=== PATIENT | female | born 1930 | race Caucasian/White ===

== ENCOUNTER 2017-06-23 19:14 | Inpatient (IN) | payer OTHER, MEDICARE ==
[~2017-06-23] VITALS: Ht 157.5 cm; Wt 40.9 kg
[2017-06-23 19:29] VITALS: BP 164/85; PULSE 96; RESP 20; TEMP 97.8; O2SAT 100
--- NOTE | 2017-06-23 19:41 | PD ---
HPI Chief Complaint: Altered Mental Status Time Seen by Provider: 19:32 Travel History International Travel<30 days: No Contact w/Intl Traveler<30days: No Traveled to known affect area: No History of Present Illness HPI 86-year-old female was found by family with lethargy and trouble speaking. Patient was found normal last night. Family member found the patient sitting on the floor in the bathroom today. Patient was awake however with lethargy and gibberish speech. EMS was called. Patient was febrile to the ED for evaluation. Patient denies any headache. Patient complaining of chest pain and shortness of breath. Patient unable to tell me the quality or quantity of the chest pain. Patient denies any coughing congestion. Patient complains abdominal pain. Patient unable to tell me the quality or the quantity of the abdominal pain Patient denies any nausea vomiting diarrhea. Patient denies dysuria or frequency. Patient's daughter states that patient has a signed DNR. Patient's daughter states the patient has history hypertension, hypothyroidism , glaucoma. Patient's daughter states the patient is not on any blood thinner. [facility] Social History Tobacco Use: No Allergies-Medications (Allergen,Severity, Reaction): Coded Allergies: Penicillin (Verified Allergy, Unknown, 06/23/17) Reported Meds & Prescriptions Reported Meds & Active Scripts Active Reported Amlodipine (Amlodipine Besylate) 5 Mg Tab 5 Mg PO DAILY Levothyroxine (Levothyroxine Sodium) 75 Mcg Tab 75 Mcg PO DAILY Review of Systems General / Constitutional: No: Fever Eyes: No: Visual changes HENT: No: Headaches Cardiovascular: Positive: Chest Pain or Discomfort Respiratory: Positive: Shortness of Breath Gastrointestinal: Positive: Abdominal Pain Genitourinary: No: Dysuria Musculoskeletal: No: Pain Skin: No Rash Neurologic: No: Weakness Psychiatric: No: Depression Endocrine: No: Polydipsia Hematologic/Lymphatic: No: Easy Bruising Physical Exam Narrative GENERAL: Thin female, with lethargy. SKIN: Focused skin assessment warm/dry. HEAD: Normocephalic. EYES: No scleral icterus. No injection or drainage. Pupils 2 mm and sluggish reactive NECK: Supple, trachea midline. No JVD or lymphadenopathy. No meningismus CARDIOVASCULAR: Regular rate and rhythm without murmurs, gallops, or rubs. RESPIRATORY: Breath sounds equal bilaterally. No accessory muscle use. Patient has mild tachypnea. Few rhonchi at the bases. No wheezes. GASTROINTESTINAL: Abdomen soft, non-tender, nondistended. MUSCULOSKELETAL: No cyanosis, or edema. BACK: Nontender without obvious deformity. No CVA tenderness. Neurologic exam: Patient awake with lethargy. Patient with mild intermittent incomprehensive words. Patient answered questions clearly at times. Patient moves all extremity well. No obvious focal neurological deficit. Data Data Last Documented VS Vital Signs Date Time Temp Pulse Resp B/P Pulse Ox O2 Delivery O2 Flow Rate FiO2 06/23/17 21:14 88 20 152/87 100 Nasal Cannula 2 06/23/17 19:29 97.8 Orders Electrocardiogram (06/23/17 19:32) Complete Blood Count With Diff (06/23/17 19:32) Comprehensive Metabolic Panel (06/23/17 19:32) Creatine Kinase (Cpk) (06/23/17 19:32) Troponin I (06/23/17 19:32) B-Type Natriuretic Peptide (06/23/17 19:32) Prothrombin Time / Inr (Pt) (06/23/17 19:32) Act Partial Throm Time (Ptt) (06/23/17 19:32) Blood Culture (06/23/17 19:32) Lipase (06/23/17 19:32) Urinalysis - C+S If Indicated (06/23/17 19:32) Thyroid Stimulating Hormone (06/23/17 19:32) Chest, Single Ap (06/23/17 19:32) Ct Brain W/O Iv Contrast(Rout) (06/23/17 19:32) Iv Access Insert/Monitor (06/23/17 19:32) Ecg Monitoring (06/23/17 19:32) Oximetry (06/23/17 19:32) Urinary Catheter Insert/Apply (06/23/17 19:32) Ct Abd/Pel W Iv Contrast(Rout) (06/23/17 19:32) Lactic Acid Sepsis Protocol (06/23/17 19:34) Sodium Chlor 0.9% 1000 Ml Inj (Ns 1000 M (06/23/17 20:15) Pantoprazole Inj (Protonix Inj) (06/23/17 20:15) Vancomycin Inj (Vancomycin Inj) (06/23/17 20:30) Levofloxacin 500 Mg Premix Inj (Levaquin (06/23/17 20:30) CKMB (06/23/17 19:40) CKMB% (06/23/17 19:40) Iohexol 350 Inj (Omnipaque 350 Inj) (06/23/17 21:08) Mannitol Inj (Mannitol Inj) (06/23/17 21:30) Mannitol Inj (Mannitol Inj) (06/23/17 21:38) Admit Order (Ed Use Only) (06/23/17 21:56) Labs Laboratory Tests Test 06/23/17 06/23/17 06/23/17 06/23/17 19:10 19:40 19:50 21:00 White Blood Count 14.3 TH/MM3 Red Blood Count 4.00 MIL/MM3 Hemoglobin 13.5 GM/DL Hematocrit 40.0 % Mean Corpuscular Volume 100.0 FL Mean Corpuscular Hemoglobin 33.7 PG Mean Corpuscular Hemoglobin 33.7 % Concent Red Cell Distribution Width 13.4 % Platelet Count 174 TH/MM3 Mean Platelet Volume 9.1 FL Neutrophils (%) (Auto) 91.0 % Lymphocytes (%) (Auto) 3.9 % Monocytes (%) (Auto) 4.9 % Eosinophils (%) (Auto) 0.0 % Basophils (%) (Auto) 0.2 % Neutrophils # (Auto) 13.0 TH/MM3 Lymphocytes # (Auto) 0.6 TH/MM3 Monocytes # (Auto) 0.7 TH/MM3 Eosinophils # (Auto) 0.0 TH/MM3 Basophils # (Auto) 0.0 TH/MM3 CBC Comment DIFF FINAL Differential Comment B-Type Natriuretic Peptide 235 PG/ML Sodium Level 140 MEQ/L Potassium Level 4.4 MEQ/L Chloride Level 105 MEQ/L Carbon Dioxide Level 20.8 MEQ/L Anion Gap 14 MEQ/L Blood Urea Nitrogen 16 MG/DL Creatinine 1.00 MG/DL Estimat Glomerular Filtration 52 ML/MIN Rate Random Glucose 128 MG/DL Lactic Acid Level 4.9 mmol/L Calcium Level 9.1 MG/DL Total Bilirubin 0.7 MG/DL Aspartate Amino Transf 40 U/L (AST/SGOT) Alanine Aminotransferase 26 U/L (ALT/SGPT) Alkaline Phosphatase 80 U/L Total Creatine Kinase 715 U/L Creatine Kinase MB 5.6 NG/ML Creatine Kinase MB % 0.8 % Troponin I 0.06 NG/ML Total Protein 7.4 GM/DL Albumin 3.8 GM/DL Lipase 155 U/L Thyroid Stimulating Hormone 0.421 uIU/ML 3rd Gen Urine Color YELLOW Urine Turbidity CLEAR Urine pH 6.5 Urine Specific [place] 1.015 Urine Protein 30 mg/dL Urine Glucose (UA) TRACE mg/dL Urine Ketones 40 mg/dL Urine Occult Blood SMALL Urine Nitrite NEG Urine Bilirubin NEG Urine Urobilinogen LESS THAN 2.0 MG/DL Urine Leukocyte Esterase NEG Urine RBC 3 /hpf Urine WBC LESS THAN 1 /hpf Urine Hyaline Casts 3 /lpf Urine Mucus FEW /lpf Microscopic Urinalysis Comment CULT NOT INDICATED Prothrombin Time 11.0 SEC Prothromb Time International 1.0 RATIO Ratio Activated Partial 23.6 SEC Thromboplast Time MDM Medical Decision Making Medical Screen Exam Complete: Yes Emergency Medical Condition: Yes Interpretation(s) Last Impressions Chest X-Ray 06/23/171931 Signed Impressions: Service Date/Time: Friday, June 23, 2017 19:32 - CONCLUSION: Hyperaerated lungs. No infiltrates seen. Galen Russ MD 21:09 PM. CBC WBC 14.3. 91 neutrophil. Bicarbonate 20.8. Lactic acid 4.9. AST 40. Total CK 715. Normal MB fraction. Troponin 0.06. BNP 235. UA negative. 21:53 PM. Last Impressions Head CT 06/23/171931 Signed Impressions: Service Date/Time: Friday, June 23, 2017 20:42 - CONCLUSION: 2.8 cm hematoma in the left thalamus with extension into the lateral ventricle and some bilateral layering intraventricular blood. There is also localized edema in the posterior left temporal region and mild midline shift towards the right. Galen Russ MD Chest X-Ray 06/23/171931 Signed Impressions: Service Date/Time: Friday, June 23, 2017 19:32 - CONCLUSION: Hyperaerated lungs. No infiltrates seen. Galen Russ MD Abdomen/Pelvis CT 06/23/171931 Signed Impressions: Service Date/Time: Friday, June 23, 2017 20:45 - CONCLUSION: No acute findings. No dilated loops of small or large bowel. Galen Russ MD Differential Diagnosis Differential diagnosis including TIA, CVA, electrolyte imbalance, pneumonia, UTI , sepsis. Narrative Course 86-year-old female with lethargy, intermittent gibberish speaking, complaining of chest pain shortness of breath abdominal pain. Normal saline solution 1 L IV bolus. Vancomycin 1 g IV. Levaquin 500 mg IV. I spoke with Dr. Robins. Advised mannitol 25 g IV every 6 hours. Diagnosis Primary Impression: Intracranial hemorrhage Additional Impressions: Sepsis Qualified Code: A41.9 - Sepsis, due to unspecified organism Elevated troponin Admitting Information Admitting Physician Requests: Admit Dany Nixon MD Jun 23, 2017 19:41
--- NOTE | 2017-06-23 20:08 | RADRPT ---
EXAM DATE/TIME: 06/23/2017 19:32 [facility] COMPARISON: No previous studies available for comparison. INDICATIONS : Short of breath MEDICAL HISTORY : None. SURGICAL HISTORY : None. ENCOUNTER: Initial ACUITY: 1 day PAIN SCORE: 0/10 LOCATION: chest FINDINGS: The lungs are hyperaerated. No focal infiltrates seen. No evidence of pneumothorax. The heart is u pper limits normal size. Moderate tortuosity descending thoracic aorta. Moderate curvature of the t horacolumbar spine convex towards the right. CONCLUSION: Hyperaerated lungs. No infiltrates seen. Galen Russ MD on June 23, 2017 at 20:06 Board Certified Radiologist. This report was verified electronically.
[2017-06-23] MEDS ORDERED: LEVO75TA3 PO (20:12)
[2017-06-23] MEDS ORDERED: AMLO5TAB2 PO (20:12)
[2017-06-23 20:14] VITALS: O2SAT 98
[2017-06-23 20:15] LABS: BASOPHIL % 0.2 % (0.0-2.0); HEMO FLAGS DIFF FINAL; LYMPH % 3.9 % (9.0-44.0); LYMPHOCYTE # 0.6 TH/MM3 (1.0-4.8); MEAN CORPUSCULAR HEMOGLOBIN 33.7 PG (27.0-34.0); MEAN CORPUSCULAR HGB CONC 33.7 % (32.0-36.0); MONO % 4.9 % (0.0-8.0); PLATELET COUNT 174 TH/MM3 (150-450); RED CELL DISTRIBUTION WIDTH 13.4 % (11.6-17.2); WHITE BLOOD COUNT 14.3 TH/MM3 (4.0-11.0)
[2017-06-23] MEDS ORDERED: SODIUM CHLOR 0.9% 1000 ML INJ 1,000 ML IV ONE (20:15)
[2017-06-23] MEDS ORDERED: PANTOPRAZOLE SODIUM 40 MG VIAL IV PUSH ONE (20:15)
[2017-06-23 20:17] LABS: BLOOD, URINE SMALL (NEG); COMMENT (UR) CULT NOT INDICATED; CULTURE IF INDICATED CULT NOT INDICATED; GLUCOSE,URINE TRACE mg/dL (NEG); HYALINE CAST, URINE 3 /lpf (RARE); KETONE, URINE 40 mg/dL (NEG); MUCUS URINE FEW /lpf (OCC); NITRITE,URINE NEG (NEG); PH, URINE 6.5 (5.0-8.5); URINE COLOR YELLOW (YELLW/STRAW)
[2017-06-23 20:18] LABS: ANION GAP 14 MEQ/L (5-15); AST (GOT) 40 U/L (15-37); BICARBONATE 20.8 MEQ/L (21.0-32.0); BLOOD UREA NITROGEN 16 MG/DL (7-18); CHLORIDE 105 MEQ/L (98-107); GLOMERULAR FILTRATION RATE 52 ML/MIN (>89); POTASSIUM 4.4 MEQ/L (3.5-5.1); SODIUM (NA) 140 MEQ/L (136-145)
[2017-06-23 20:19] LABS: ALT (GPT) 26 U/L (10-53)
[2017-06-23 20:29] LABS: ALKALINE PHOSPHATASE 80 U/L (45-117); CREATINE KINASE 715 U/L (26-192); TOTAL BILIRUBIN ADULT 0.7 MG/DL (0.2-1.0)
[2017-06-23] MEDS ORDERED: LEVOFLOXACIN 500 MG PREMIX INJ 100 ML IV ONE (20:30)
[2017-06-23] MEDS ORDERED: VANCOMYCIN INJ 1,000 MG in SODIUM CHLOR 0.9% 250 ML INJ 250 ML IV ONE (20:30)
[2017-06-23 20:41] LABS: CKMB 5.6 NG/ML (0.5-3.6)
[2017-06-23] MEDS ORDERED: IOHEXOL 350 MG/ML 10 ML VIAL (for RAD DIAG) IV ONE (21:08)
--- NOTE | 2017-06-23 21:11 | RADRPT ---
EXAM DATE/TIME: 06/23/2017 20:42 [facility] COMPARISON: No previous studies available for comparison. INDICATIONS : Altered mental status. Found unresponsive in chair. RADIATION DOSE: 56.35 CTDIvol (mGy) MEDICAL HISTORY : None SURGICAL HISTORY : None. ENCOUNTER: Initial ACUITY: 1 day PAIN SCALE: 0/10 LOCATION: cranial TECHNIQUE: Multiple contiguous axial images were obtained of the head. Using automated exposure control and adj ustment of the mA and/or kV according to patient size, radiation dose was kept as low as reasonably a chievable to obtain optimal diagnostic quality images. DICOM format image data is available electro nically for review and comparison. FINDINGS: CEREBRUM: The study is abnormal demonstrating a 2.8 cm hyperdense hematoma in the medial left thalamus causing indentation on the 3rd ventricle and deviation of the septum between the lateral ventricles towards t he right a 4 mm. Extension of the hemorrhage into the body of the left lateral ventricle and there i s some mild layering of blood products in the occipital horns. There is diffuse decreased attenuatio n in the supratentorial white matter. The lateral ventricles are similar in size. The sulci and bas al cisterns are prominent characteristic of central and cortical atrophy. There is loss of delineati on of the carpenter and white matter in the left low convexity posterior temporal region suggesting focal edema. No subdural or subarachnoid blood products seen. POSTERIOR FOSSA: The cerebellum and brainstem are intact. The 4th ventricle is midline. No hemorrhage in the 4th paty tricle. The cerebellopontine angle is unremarkable. EXTRACRANIAL: The visualized portion of the orbits is intact. SKULL: The calvaria is intact. No evidence of skull fracture. CONCLUSION: 2.8 cm hematoma in the left thalamus with extension into the lateral ventricle and some bilateral lay ering intraventricular blood. There is also localized edema in the posterior left temporal region an d mild midline shift towards the right. Galen Russ MD on June 23, 2017 at 21:04 Board Certified Radiologist. This report was verified electronically.
[2017-06-23 21:14] VITALS: BP 152/87; PULSE 88; RESP 20; O2SAT 100
[2017-06-23] MEDS ORDERED: MANNITOL 12.5 GM/50 ML VIAL IV ONE (21:30)
--- NOTE | 2017-06-23 21:36 | RADRPT ---
EXAM DATE/TIME: 06/23/2017 20:45 [facility] COMPARISON: No previous studies available for comparison. INDICATIONS : Diffuse abdominal pain. IV CONTRAST: 80 cc Omnipaque 350 (iohexol) IV ORAL CONTRAST: No oral contrast ingested. RADIATION DOSE: 9.96 CTDIvol (mGy) ; Patient motion MEDICAL HISTORY : None SURGICAL HISTORY : None. ENCOUNTER: Initial ACUITY: 1 day PAIN SCALE: 6/10 LOCATION: Bilateral abdomen TECHNIQUE: Volumetric scanning of the abdomen and pelvis was performed. Using automated exposure control and ad justment of the mA and/or kV according to patient size, radiation dose was kept as low as reasonably achievable to obtain optimal diagnostic quality images. DICOM format image data is available electro nically for review and comparison. FINDINGS: LOWER LUNGS: The visualized lower lungs are clear. LIVER: Homogeneous density without lesion. There is no dilation of the biliary tree. No calcified gallston es. SPLEEN: Normal size without lesion. PANCREAS: Within normal limits. KIDNEYS: Normal in size and shape. There is no mass, stone or hydronephrosis. ADRENAL GLANDS: Within normal limits. VASCULAR: There is no aortic aneurysm. Arteriosclerotic calcification. Tortuous course to the abdominal aorta follows the scoliosis. BOWEL/MESENTERY: No dilated loops of small or large bowel. Scattered diverticula in the sigmoid colon. ABDOMINAL WALL: Within normal limits. RETROPERITONEUM: There is no lymphadenopathy. BLADDER: Nix catheter in the lumen. Smooth margins. REPRODUCTIVE: Hysterectomy. INGUINAL: There is no lymphadenopathy or hernia. MUSCULOSKELETAL: Severe right lumbar scoliosis with associated degenerative changes. 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 CONCLUSION: No acute findings. No dilated loops of small or large bowel. Galen Russ MD on June 23, 2017 at 21:31 Board Certified Radiologist. This report was verified electronically.
[2017-06-23] MEDS ORDERED: MANNITOL INJ 50 ML ONE (21:38)
[2017-06-23 21:39] LABS: APTT (PATIENT) 23.6 SEC (24.3-30.1)
[2017-06-23 21:55] LABS: LACTIC ACID GHOST NOT REPORTABLE
[2017-06-23] MEDS ORDERED: LACTULOSE SYRUP 20 GM/30 ML CUP PO PRN (22:15)
[2017-06-23] MEDS ORDERED: MAGNESIUM HYDROXIDE SUSP 30 ML CUP PO PRN (22:15)
[2017-06-23] MEDS ORDERED: ZOLPIDEM TARTRATE 5 MG TAB PO PRN (22:15)
[2017-06-23] MEDS ORDERED: BISACODYL 10 MG SUPP RECTAL PRN (22:15)
[2017-06-23] MEDS ORDERED: SODIUM CHLORIDE 0.9% FLUSH 10 ML FLUSH PRN (22:15)
[2017-06-23] MEDS ORDERED: SENNOSIDES 8.6 MG TAB PO PRN (22:15)
[2017-06-23] MEDS ORDERED: ACETAMINOPHEN 325 MG TAB PO PRN (22:15)
[2017-06-23] MEDS ORDERED: MISCELLANEOUS NURSING INFORMATION XX SCH (22:15)
[2017-06-23] MEDS ORDERED: CHLORHEXIDINE GLUCONATE 2 % 1 PACK (2 CLOTHS) TOP PRN (22:15)
[2017-06-23 22:21] VITALS: BP 150/68; PULSE 85; RESP 18; O2SAT 100
[2017-06-23] MEDS: SODIUM CHLOR 0.9% 1000 ML INJ 1,000 ML IV SCH (23:18)
[2017-06-23 23:25] VITALS: BP 156/88; PULSE 88; RESP 18; O2SAT 100
--- NOTE | 2017-06-23 23:50 | HHI.HP ---
HPI Service Critical Care Medicine Primary Care Physician Christy Mayes MD Admission Diagnosis intracranial hemorrhage. Sepsis. Elevated troponin. Diagnosis: Travel History International Travel<30 Days: No Contact w/Intl Traveler <30 Da: No Traveled to Known Affected Are: No History of Present Illness 86-year-old female with hypertension and hypothyroidism was found by family with lethargy and trouble speaking. Patient was last seen in normal the night before. Family member found the patient sitting on the floor in the bathroom today. She was awake however with lethargy and gibberish speech. EMS was called. Patient denies any headache. Patient denies any coughing congestion. She also complains of some abdominal pain. Patient unable to tell me the quality or the quantity of the abdominal pain Patient denies any nausea vomiting diarrhea. Patient denies dysuria or frequency. Review of Systems Constitutional: DENIES: Diaphoretic episodes, Fatigue, Fever, Weight gain, Weight loss, Chills, Dizziness, Change in appetite, Night Sweats Endocrine: DENIES: Abnorml menstrual pattern, Heat/cold intolerance, Polydipsia , Polyuria, Polyphagia Eyes: DENIES: Blurred vision, Diplopia, Eye inflammation, Eye pain, Vision loss , Photosensitivity, Double Vision Ears, nose, mouth, throat: DENIES: Tinnitus, Hearing loss, Vertigo, Nasal discharge, Oral lesions, Throat pain, Hoarseness, Ear Pain, Running Nose, Epistaxis, Sinus Pain, Toothache, Odynophagia Respiratory: COMPLAINS OF: Shortness of breath, DENIES: Apneas, Cough, Snoring , Wheezing, Hemoptysis, Sputum production Cardiovascular: DENIES: Chest pain, Palpitations, Syncope, Dyspnea on Exertion , PND, Lower Extremity Edema, Orthopnea, Claudication Gastrointestinal: COMPLAINS OF: Abdominal pain, DENIES: Black stools, Bloody stools, Constipation, Diarrhea, Nausea, Vomiting, Difficulty Swallowing, Anorexia Genitourinary: DENIES: Abnormal vaginal bleeding, Dysmenorrhea, Dyspareunia, Sexual dysfunction, Urinary frequency, Urinary incontinence, Urgency, Hematuria , Dysuria, Nocturia, Vaginal discharge Musculoskeletal: DENIES: Joint pain, Muscle aches, Stiffness, Joint Swelling, Back pain, Neck pain Integumentary: DENIES: Abnormal pigmentation, Pruritus, Rash, Nail changes, Breast masses, Breast skin changes, Nipple discharge Hematologic/lymphatic: DENIES: Bruising, Lymphadenopathy Immunologic/allergic: DENIES: Eczema, Urticaria Neurologic: COMPLAINS OF: Abnormal gait, Localized weakness, DENIES: Headache , Paresthesias, Seizures, Speech Problems, Tremor, Poor Balance Psychiatric: COMPLAINS OF: Delusions Past Family Social History Allergies: Coded Allergies: Penicillin (Verified Allergy, Unknown, 06/23/17) Past Medical History Hypertension Hypothyroidism Glaucoma Past Surgical History None Reported Medications Reported Meds & Active Scripts Active Reported Amlodipine (Amlodipine Besylate) 5 Mg Tab 5 Mg PO DAILY Levothyroxine (Levothyroxine Sodium) 75 Mcg Tab 75 Mcg PO DAILY Active Ordered Medications Current Medications Medications (Trade) Dose Ordered Sig/Lyric Route PRN Reason Start Time Stop Time Status Last Admin Dose Admin Mannitol (Mannitol Inj) 25 gm Q6H IV 06/24/17 04:00 Amlodipine Besylate (Norvasc) 5 mg DAILY PO 06/24/17 09:00 Levothyroxine Sodium 75 mcg 75 mcg DAILY@06 PO 06/24/17 06:00 Sodium Chloride (NS 1000 ml Inj) 1,000 ml @ 84 mls/hr [id number] IV 06/23/17 23:00 06/23/17 23:18 Sodium Chloride (NS Flush) 2 ml UNSCH PRN .XX FLUSH AFTER USING IV ACCESS 06/23/17 22:15 Sodium Chloride (NS Flush) 2 ml BID .XX 06/24/17 09:00 Acetaminophen (Tylenol) 650 mg Q6H PRN PO PAIN 1-10 AND/OR FEVER >101F 06/23/17 22:15 Morphine Sulfate (Morphine Inj) 2 mg Q2H PRN IV PAIN SCALE 6 TO 10 06/23/17 22:15 Famotidine (Pepcid Inj) 20 mg Q12HR IV PUSH 06/24/17 09:00 Ondansetron HCl (Zofran Inj) 4 mg Q6H PRN IV NAUSEA OR VOMITING 06/23/17 22:15 Zolpidem Tartrate (Ambien) 5 mg HS PRN PO INSOMNIA 06/23/17 22:15 Miscellaneous Information 1 Q361D XX 06/23/17 22:15 Chlorhexidine Gluconate (Chlorhexidine 2% Cloth) 3 pack Taper DAILY@04 TOP 06/24/17 04:00 06/20/18 03:59 Chlorhexidine Gluconate (Chlorhexidine 2% Cloth) 3 pack UNSCH PRN [facility] 06/23/17 22:15 Senna/Docusate Sodium (Parvin-Colace) 1 tab BID PO 06/24/17 09:00 Magnesium Hydroxide (Milk Of Flaca Peterson) 30 ml Q12H PRN PO MILD - MODERATE CONSTIPATION 06/23/17 22:15 Sennosides (Senokot) 17.2 mg Q12H PRN PO MODERATE - SEVERE CONSTIPATION 06/23/17 22:15 Bisacodyl (Dulcolax Supp) 10 mg DAILY PRN RECTAL SEVERE CONSITIPATION 06/23/17 22:15 Lactulose 30 ml 30 ml DAILY PRN PO SEVERE CONSITIPATION 06/23/17 22:15 Levofloxacin/ Dextrose (Levaquin 750 Mg Premix Inj) 150 ml @ 100 mls/hr Q24H IV 06/24/17 21:00 Hydralazine HCl (Apresoline Inj) 10 mg Q4H PRN IV PUSH SBP>140, DBP>90 06/24/17 00:30 Labetalol HCl (Trandate Inj) 10 mg Q4H PRN IV PUSH SBP>140, DBP>90 06/24/17 00:30 06/24/17 00:38 Family History No family history of cancer or early coronary artery disease Social History Denies alcohol tobacco or illicit drug abuse Physical Exam Vital Signs Vital Signs Date Time Temp Pulse Resp B/P Pulse Ox O2 Delivery O2 Flow Rate FiO2 06/23/17 23:25 88 18 156/88 100 Nasal Cannula 2 06/23/17 22:21 85 18 150/68 100 Nasal Cannula 2 06/23/17 21:14 88 20 152/87 100 Nasal Cannula 2 06/23/17 20:14 98 Nasal Cannula 2 06/23/17 19:36 Room Air 06/23/17 19:29 97.8 96 20 164/85 100 Physical Exam GENERAL: Elderly female comfortably sitting on the he stretcher. SKIN: Warm and dry. HEAD: Normocephalic. EYES: No scleral icterus. No injection or drainage. NECK: Supple, trachea midline. No JVD or lymphadenopathy. CARDIOVASCULAR: Regular rate and rhythm without murmurs, gallops, or rubs. RESPIRATORY: Breath sounds equal bilaterally. No accessory muscle use. GASTROINTESTINAL: Abdomen soft, non-tender, nondistended. MUSCULOSKELETAL: No cyanosis, or edema. BACK: Nontender without obvious deformity. No CVA tenderness. EXTREMITIES: Right upper extremity weakness 2 out of 5, all other 3 extremities intact Laboratory Laboratory Tests Test 06/23/17 06/23/17 06/23/17 06/23/17 19:10 19:40 19:50 21:00 White Blood Count 14.3 Red Blood Count 4.00 Hemoglobin 13.5 Hematocrit 40.0 Mean Corpuscular Volume 100.0 Mean Corpuscular Hemoglobin 33.7 Mean Corpuscular Hemoglobin 33.7 Concent Red Cell Distribution Width 13.4 Platelet Count 174 Mean Platelet Volume 9.1 Neutrophils (%) (Auto) 91.0 Lymphocytes (%) (Auto) 3.9 Monocytes (%) (Auto) 4.9 Eosinophils (%) (Auto) 0.0 Basophils (%) (Auto) 0.2 Neutrophils # (Auto) 13.0 Lymphocytes # (Auto) 0.6 Monocytes # (Auto) 0.7 Eosinophils # (Auto) 0.0 Basophils # (Auto) 0.0 CBC Comment DIFF FINAL Differential Comment B-Type Natriuretic Peptide 235 Sodium Level 140 Potassium Level 4.4 Chloride Level 105 Carbon Dioxide Level 20.8 Anion Gap 14 Blood Urea Nitrogen 16 Creatinine 1.00 Estimat Glomerular Filtration 52 Rate Random Glucose 128 Lactic Acid Level 4.9 Calcium Level 9.1 Total Bilirubin 0.7 Aspartate Amino Transf 40 (AST/SGOT) Alanine Aminotransferase 26 (ALT/SGPT) Alkaline Phosphatase 80 Total Creatine Kinase 715 Creatine Kinase MB 5.6 Creatine Kinase MB % 0.8 Troponin I 0.06 Total Protein 7.4 Albumin 3.8 Lipase 155 Thyroid Stimulating Hormone 0.421 3rd Gen Urine Color YELLOW Urine Turbidity CLEAR Urine pH 6.5 Urine Specific [place] 1.015 Urine Protein 30 Urine Glucose (UA) TRACE Urine Ketones 40 Urine Occult Blood SMALL Urine Nitrite NEG Urine Bilirubin NEG Urine Urobilinogen LESS THAN 2.0 Urine Leukocyte Esterase NEG Urine RBC 3 Urine WBC LESS THAN 1 Urine Hyaline Casts 3 Urine Mucus FEW Microscopic Urinalysis Comment CULT NOT INDICATED Prothrombin Time 11.0 Prothromb Time International 1.0 Ratio Activated Partial 23.6 Thromboplast Time Test 06/23/17 22:23 Lactic Acid Level 2.7 Date/Time Procedure Status Source Growth 06/23/17 19:40 Aerobic Blood Culture Received Blood Peripheral Pending 06/23/17 19:40 Anaerobic Blood Culture Received Blood Peripheral Pending Result Diagram: 06/23/17 1910 06/23/171939 Imaging Last [address] 06/23/171931 Signed Impressions: Service Date/Time: Friday, June 23, 2017 20:42 - CONCLUSION: 2.8 cm hematoma in the left thalamus with extension into the lateral ventricle and some bilateral layering intraventricular blood. There is also localized edema in the posterior left temporal region and mild midline shift towards the right. Galen Russ MD Chest X-Ray 06/23/171931 Signed Impressions: Service Date/Time: Friday, June 23, 2017 19:32 - CONCLUSION: Hyperaerated lungs. No infiltrates seen. Galen Russ MD Abdomen/Pelvis CT 06/23/171931 Signed Impressions: Service Date/Time: Friday, June 23, 2017 20:45 - CONCLUSION: No acute findings. No dilated loops of small or large bowel. Galen Russ MD Assessment and Plan Assessment and Plan ICH - No neurosurgical intervention indicated - Blood pressure control with the goal of SBP less than 140 - Mannitol every [address] Robins - Neurosurgical consult appreciated - No history of blood thinners - Neuro exams per unit protocol - Repeat CT head a.m. Hypertension - Labetalol and hydralazine when necessary to keep SBP less than 140 Urinary tract infection - Levaquin - Culture - Antibiotic further per sensitivity Hypothyroidism - Levothyroxine per home dose DVT GI prophylaxis - Teds SCDs - No pharmacological DVT prophylaxis due to ICH - IV Pepcid Critical Care: The total critical care time was 35 minutes. Time to perform other separately billable procedures was not included in the critical care time. Mitesh Castaneda MD Jun 23, 2017 23:50
[2017-06-24] VITALS (17 sets, daily range): BP systolic 120–173; BP diastolic 58–115; PULSE 71–102; RESP 12–32; TEMP 98–100.4; O2SAT 95–99
[2017-06-24] MEDS ORDERED: LABETALOL HCL 100 MG/20 ML VIAL IV PUSH PRN (00:30)
[2017-06-24] MEDS: ONDANSETRON HCL 4 MG/2 ML VIAL IV PRN ×3 (00:47→10:54)
[2017-06-24] MEDS: MORPHINE SULFATE 4 MG/ML INJ IV PRN ×5 (00:49→23:32)
[2017-06-24] MEDS: CHLORHEXIDINE GLUCONATE 2 % 1 PACK (2 CLOTHS) TOP SCH (04:00)
[2017-06-24] MEDS: MANNITOL 12.5 GM/50 ML VIAL IV SCH ×3 (04:17→16:00)
[2017-06-24] MEDS: hydrALAZINE HCL 20 MG/ML VIAL IV PUSH PRN ×3 (04:58→16:08)
[2017-06-24] MEDS ORDERED: LEVOTHYROXINE SODIUM 75 MCG TAB PO SCH (06:00)
[2017-06-24 07:07] LABS: AUTOMATED NEUTROPHIL # 8.2 TH/MM3 (1.8-7.7); BASOPHIL % 0.2 % (0.0-2.0); HEMATOCRIT 36.1 % (35.0-46.0); HEMO FLAGS DIFF FINAL; LYMPH % 10.1 % (9.0-44.0); MEAN CELL VOLUME 100.2 FL (80.0-100.0); MEAN CORPUSCULAR HEMOGLOBIN 33.9 PG (27.0-34.0); MEAN CORPUSCULAR HGB CONC 33.9 % (32.0-36.0); MONO % 8.8 % (0.0-8.0); NEUT % 80.9 % (16.0-70.0); PLATELET COUNT 160 TH/MM3 (150-450); RED CELL DISTRIBUTION WIDTH 13.6 % (11.6-17.2); WHITE BLOOD COUNT 10.1 TH/MM3 (4.0-11.0)
[2017-06-24 07:17] LABS: ALT (GPT) 23 U/L (10-53); ANION GAP 8 MEQ/L (5-15); AST (GOT) 44 U/L (15-37); BICARBONATE 27.7 MEQ/L (21.0-32.0); BLOOD UREA NITROGEN 9 MG/DL (7-18); CHLORIDE 106 MEQ/L (98-107); GLOMERULAR FILTRATION RATE 66 ML/MIN (>89); MAGNESIUM 1.9 MG/DL (1.5-2.5); POTASSIUM 3.2 MEQ/L (3.5-5.1); SODIUM (NA) 142 MEQ/L (136-145)
[2017-06-24 07:24] LABS: ALKALINE PHOSPHATASE 70 U/L (45-117); TOTAL BILIRUBIN ADULT 0.7 MG/DL (0.2-1.0)
[2017-06-24] MEDS ORDERED: ALPH0.1S EACH EYE (07:25)
[2017-06-24] MEDS ORDERED: LATA0.002 EACH EYE (07:27)
[2017-06-24] MEDS: SODIUM CHLORIDE 0.9% FLUSH 10 ML FLUSH SCH ×2 (08:22→20:55)
[2017-06-24] MEDS ORDERED: FAMOTIDINE 20 MG/2 ML VIAL IV PUSH SCH (09:00)
[2017-06-24] MEDS ORDERED: amLODIPine BESYLATE 5 MG TAB PO SCH (09:00)
--- NOTE | 2017-06-24 09:07 | HHI.CCPN ---
Subjective Remarks/Hospital Course 86-year-old female with hypertension and hypothyroidism was found by family with lethargy and trouble speaking. Patient was last seen in normal the night before. Family member found the patient sitting on the floor in the bathroom today. She was awake however with lethargy and gibberish speech. EMS was called. Patient denies any headache. Patient denies any coughing congestion. She also complains of some abdominal pain. Patient unable to tell me the quality or the quantity of the abdominal pain Patient denies any nausea vomiting diarrhea. Patient denies dysuria or frequency. 06/24: Protects airway. No change in neuro status. Objective Vital Signs Date Time Temp Pulse Resp B/P Pulse Ox O2 Delivery O2 Flow Rate FiO2 06/24/17 08:00 99.2 82 14 148/74 97 06/24/17 05:58 Room Air 06/24/17 01:24 2 Result Diagram: 06/24/17 0624 06/24/17 0624 Imaging Last [address] 06/23/171931 Signed Impressions: Service Date/Time: Friday, June 23, 2017 20:42 - CONCLUSION: 2.8 cm hematoma in the left thalamus with extension into the lateral ventricle and some bilateral layering intraventricular blood. There is also localized edema in the posterior left temporal region and mild midline shift towards the right. Glaen Russ MD Chest X-Ray 06/23/171931 Signed Impressions: Service Date/Time: Friday, June 23, 2017 19:32 - CONCLUSION: Hyperaerated lungs. No infiltrates seen. Galen Russ MD Abdomen/Pelvis CT 06/23/171931 Signed Impressions: Service Date/Time: Friday, June 23, 2017 20:45 - CONCLUSION: No acute findings. No dilated loops of small or large bowel. Galen Russ MD Objective Remarks GENERAL: Elderly female in NAD. SKIN: Warm and dry. HEAD: Normocephalic. EYES: No scleral icterus. No injection or drainage. NECK: Supple, trachea midline.Airway widely patent. CARDIOVASCULAR: Regular rate and rhythm without murmurs, gallops, or rubs. No JVD. RESPIRATORY: Breath sounds equal bilaterally. No accessory muscle use. Clear. GASTROINTESTINAL: Abdomen soft, non-tender, nondistended. BS active. MUSCULOSKELETAL: No cyanosis, or edema. Well perfused. EXTREMITIES: Well perfused. NEURO: Right upper extremity weakness 2 out of 5, all other extremities intact. A/P Assessment and Plan ICH - No neurosurgical intervention indicated - Blood pressure control with the goal of SBP less than 140 - Mannitol every [address] Robins - Neurosurgical consult appreciated - No history of blood thinners - Neuro exams per unit protocol - Repeat CT head. Hypertension - Labetalol and hydralazine when necessary to keep SBP less than 140 Urinary tract infection - Levaquin - Culture - Antibiotic further per sensitivity Hypothyroidism - Levothyroxine per home dose DVT GI prophylaxis - Teds SCDs - No pharmacological DVT prophylaxis due to ICH - IV Pepcid Overall impression: Stable respiratory and hemodynamic status. Deteriorating neuro status during the day. Daughter requests DNR/comfort measures only status - we agree and will comply. Diony Montoya MD Jun 24, 2017 09:07
[2017-06-24] MEDS ORDERED: POTASSIUM PHOSPHATE MONOBASIC 500 MG TAB PO/TUBE PRN (09:45)
[2017-06-24] MEDS ORDERED: MAGNESIUM OXIDE 400 MG TAB PO PRN (09:45)
[2017-06-24] MEDS ORDERED: POTASSIUM CHLORIDE 25 MEQ EFFERVESCENT TAB PO PRN (09:45)
[2017-06-24] MEDS ORDERED: POTASSIUM CHLOR 40 MEQ PREMIX 100 ML IV PRN ×2 (09:45)
[2017-06-24] MEDS ORDERED: MAGNESIUM SULFATE INJ 4 GM in SODIUM CHLORIDE 0.9% INJ 92 ML IV PRN (09:45)
[2017-06-24] MEDS ORDERED: MAGNESIUM SULFATE INJ 2 GM in SODIUM CHLORIDE 0.9% INJ 96 ML IV PRN (09:45)
[2017-06-24] MEDS ORDERED: POTASSIUM CHLOR 20 MEQ PREMIX 100 ML IV PRN (09:45)
[2017-06-24] MEDS ORDERED: POTASSIUM PHOSPHATE INJ 30 MMOL in SODIUM CHLOR 0.9% 250 ML INJ 250 ML IV PRN (09:45)
[2017-06-24] MEDS ORDERED: POTASSIUM PHOSPHATE MONOBASIC 500 MG TAB PO PRN (09:45)
[2017-06-24] MEDS ORDERED: SODIUM PHOSPHATE INJ 30 MMOL in SODIUM CHLOR 0.9% 250 ML INJ 240 ML IV PRN (09:45)
--- NOTE | 2017-06-24 09:47 | PD.CONS ---
HPI Consult Requested By Primary Care Physician Christy Mayes MD Past Family Social History Allergies: Coded Allergies: Penicillin (Verified Allergy, Unknown, 06/23/17) Family History Family History: reviewed and does not contribute to this illness. No history of brain tumors stroke or aneurysms Physical Exam Vital Signs Vital Signs Date Time Temp Pulse Resp B/P Pulse Ox O2 Delivery O2 Flow Rate FiO2 06/24/17 08:00 99.2 82 14 148/74 97 06/24/17 08:00 86 06/24/17 07:00 80 19 144/68 94 06/24/17 05:58 86 18 130/59 96 Room Air 06/24/17 04:34 98.0 83 18 143/69 95 Room Air 06/24/17 03:00 78 18 140/68 96 06/24/17 01:50 132/63 06/24/17 01:30 148/70 06/24/17 01:24 74 18 154/72 98 Nasal Cannula 2 06/24/17 00:43 71 18 148/72 98 Nasal Cannula 2 06/24/17 00:22 99 18 159/115 99 Nasal Cannula 2 06/23/17 23:25 88 18 156/88 100 Nasal Cannula 2 06/23/17 22:21 85 18 150/68 100 Nasal Cannula 2 06/23/17 21:14 88 20 152/87 100 Nasal Cannula 2 06/23/17 20:14 98 Nasal Cannula 2 06/23/17 19:36 Room Air 06/23/17 19:29 97.8 96 20 164/85 100 Laboratory Laboratory Tests Test 06/23/17 06/23/17 06/23/17 06/23/17 19:10 19:40 19:50 21:00 White Blood Count 14.3 Red Blood Count 4.00 Hemoglobin 13.5 Hematocrit 40.0 Mean Corpuscular Volume 100.0 Mean Corpuscular Hemoglobin 33.7 Mean Corpuscular Hemoglobin 33.7 Concent Red Cell Distribution Width 13.4 Platelet Count 174 Mean Platelet Volume 9.1 Neutrophils (%) (Auto) 91.0 Lymphocytes (%) (Auto) 3.9 Monocytes (%) (Auto) 4.9 Eosinophils (%) (Auto) 0.0 Basophils (%) (Auto) 0.2 Neutrophils # (Auto) 13.0 Lymphocytes # (Auto) 0.6 Monocytes # (Auto) 0.7 Eosinophils # (Auto) 0.0 Basophils # (Auto) 0.0 CBC Comment DIFF FINAL Differential Comment B-Type Natriuretic Peptide 235 Sodium Level 140 Potassium Level 4.4 Chloride Level 105 Carbon Dioxide Level 20.8 Anion Gap 14 Blood Urea Nitrogen 16 Creatinine 1.00 Estimat Glomerular Filtration 52 Rate Random Glucose 128 Lactic Acid Level 4.9 Calcium Level 9.1 Total Bilirubin 0.7 Aspartate Amino Transf 40 (AST/SGOT) Alanine Aminotransferase 26 (ALT/SGPT) Alkaline Phosphatase 80 Total Creatine Kinase 715 Creatine Kinase MB 5.6 Creatine Kinase MB % 0.8 Troponin I 0.06 Total Protein 7.4 Albumin 3.8 Lipase 155 Thyroid Stimulating Hormone 0.421 3rd Gen Urine Color YELLOW Urine Turbidity CLEAR Urine pH 6.5 Urine Specific [place] 1.015 Urine Protein 30 Urine Glucose (UA) TRACE Urine Ketones 40 Urine Occult Blood SMALL Urine Nitrite NEG Urine Bilirubin NEG Urine Urobilinogen LESS THAN 2.0 Urine Leukocyte Esterase NEG Urine RBC 3 Urine WBC LESS THAN 1 Urine Hyaline Casts 3 Urine Mucus FEW Microscopic Urinalysis Comment CULT NOT INDICATED Prothrombin Time 11.0 Prothromb Time International 1.0 Ratio Activated Partial 23.6 Thromboplast Time Test 06/23/17 06/24/17 22:23 06:24 Lactic Acid Level 2.7 White Blood Count 10.1 Red Blood Count 3.60 Hemoglobin 12.2 Hematocrit 36.1 Mean Corpuscular Volume 100.2 Mean Corpuscular Hemoglobin 33.9 Mean Corpuscular Hemoglobin 33.9 Concent Red Cell Distribution Width 13.6 Platelet Count 160 Mean Platelet Volume 9.0 Neutrophils (%) (Auto) 80.9 Lymphocytes (%) (Auto) 10.1 Monocytes (%) (Auto) 8.8 Eosinophils (%) (Auto) 0.0 Basophils (%) (Auto) 0.2 Neutrophils # (Auto) 8.2 Lymphocytes # (Auto) 1.0 Monocytes # (Auto) 0.9 Eosinophils # (Auto) 0.0 Basophils # (Auto) 0.0 CBC Comment DIFF FINAL Differential Comment Sodium Level 142 Potassium Level 3.2 Chloride Level 106 Carbon Dioxide Level 27.7 Anion Gap 8 Blood Urea Nitrogen 9 Creatinine 0.82 Estimat Glomerular Filtration 66 Rate Random Glucose 107 Calcium Level 8.4 Phosphorus Level 3.0 Magnesium Level 1.9 Total Bilirubin 0.7 Aspartate Amino Transf 44 (AST/SGOT) Alanine Aminotransferase 23 (ALT/SGPT) Alkaline Phosphatase 70 Total Protein 6.7 Albumin 3.5 Date/Time Procedure Status Source Growth 06/23/17 19:50 Urine Culture Received Urine Catheterized Urine Pending 06/23/17 19:40 Aerobic Blood Culture Received Blood Peripheral Pending 06/23/17 19:40 Anaerobic Blood Culture Received Blood Peripheral Pending Result Diagram: 06/24/1762306/24/17623 Attending Statement Neuro. neuro checks in a serial fashion. Nonoperative management. FOllow up radiological studies in 24 hrs Hypertension Labetalol and hydralazine when necessary to keep SBP less than 140 Urinary tract infection. Levaquin. Follow up Cultures Antibiotic further per sensitivity Hypothyroidism. Continue Levothyroxine per home dose Pulmonary. aggressive pulmonary toilette, nasotracheal suction, and breathing treatments with nebulizers. PT and OT evaluation Nutrition. Oral diet Renal. monitor closely urine output, BUN and creatinine Endocrine. Monitor serial Acu checks and SSI as needed ID monitor for signs of infection Protonix for stress ulcer prophylaxis Bart hose and SCD's for DVT prophylaxis Vinny Robins MD Jun 24, 2017 09:47 Vinny Robins MD Jun 24, 2017 09:47
[2017-06-24] MEDS: POTASSIUM CHLOR 20 MEQ PREMIX 100 ML IV PRN ×4 (09:53→16:21)
[2017-06-24] MEDS: DOCUSATE SODIUM 50 MG/SENNA 8.6 MG TAB PO SCH ×2 (09:53→20:55)
[2017-06-24] MEDS: SODIUM CHLOR 0.9% 1000 ML INJ 1,000 ML IV SCH ×2 (10:36→22:54)
--- NOTE | 2017-06-24 12:01 | RADRPT ---
EXAM DATE/TIME: 06/24/2017 11:28 [facility] COMPARISON: CT BRAIN W/O CONTRAST, June 23, 2017, 20:42. INDICATIONS : Increased altered mental status. RADIATION DOSE: 56.39 CTDIvol (mGy) MEDICAL HISTORY : Hypertension. SURGICAL HISTORY : Hysterectomy. ENCOUNTER: Subsequent ACUITY: 2 days PAIN SCALE: Non-responsive LOCATION: cranial TECHNIQUE: Multiple contiguous axial images were obtained of the head. Using automated exposure control and adj ustment of the mA and/or kV according to patient size, radiation dose was kept as low as reasonably a chievable to obtain optimal diagnostic quality images. DICOM format image data is available electro nically for review and comparison. FINDINGS: The prior examination demonstrated a left basal ganglia/thalamus acute hematoma measuring approximate ly 2.7 x 2.6 cm. The blood products extended into the ventricular system with layering in the occipit al horns bilaterally. Today's examination demonstrates a stable appearance to the acute blood products. Ventricles are stab le in size. There is stable 3 mm of left or right midline shift. There is a moderate to severe perive ntricular white matter low attenuation characteristic of chronic microvascular ischemia. No mass or a cute infarct is identified. CONCLUSION: Stable head CT with acute blood products in the left basal ganglia/thalamus with extension into the v entricular system. There is stable slight left to right midline shift. Ethan Espinoza MD on June 24, 2017 at 11:56 Board Certified Radiologist. This report was verified electronically.
--- NOTE | 2017-06-24 15:05 | EKG ---
Date Performed: 06/23/2017 Time Performed: 19:43:47 PTAGE: 86 years EKG: Sinus rhythm WITH SHORT ME INTERVAL WITH OCCASIONAL VENTRICULAR PREMATURE COMPLEXES WITH FREQUENT SUPRAVENTRICULA R PREMATURE COMPLEXES MARKED LEFT AXIS DEVIATION NONSPECIFIC ST & T-WAVE ABNORMALITY ABNORMAL ECG PREVIOUS TRACING : 12/25/[address]24 [address]-T changes are more noticeable since prior tracing. DOCTOR: Ruddy Jay Interpretating Date/Time 06/24/2017 15:03:50
[2017-06-24] MEDS ORDERED: LEVOFLOXACIN 750 MG PREMIX INJ 150 ML IV SCH (21:00)
[2017-06-25] VITALS (9 sets, daily range): BP systolic 150–167; BP diastolic 68–97; PULSE 91–112; RESP 16–31; TEMP 98.6–100.2; O2SAT 93–95
[2017-06-25] MEDS: MORPHINE SULFATE 4 MG/ML INJ IV PRN ×5 (02:54→16:55)
[2017-06-25] MEDS: CHLORHEXIDINE GLUCONATE 2 % 1 PACK (2 CLOTHS) TOP SCH (04:41)
[2017-06-25 05:15] LABS: BICARBONATE 24.5 MEQ/L (21.0-32.0); POTASSIUM 3.8 MEQ/L (3.5-5.1)
[2017-06-25] MEDS: SODIUM CHLORIDE 0.9% FLUSH 10 ML FLUSH SCH (08:42)
[2017-06-25] MEDS: DOCUSATE SODIUM 50 MG/SENNA 8.6 MG TAB PO SCH (08:42)
--- NOTE | 2017-06-25 09:24 | HHI.CCPN ---
Subjective Remarks/Hospital Course 86-year-old female with hypertension and hypothyroidism was found by family with lethargy and trouble speaking. Patient was last seen in normal the night before. Family member found the patient sitting on the floor in the bathroom today. She was awake however with lethargy and gibberish speech. EMS was called. Patient denies any headache. Patient denies any coughing congestion. She also complains of some abdominal pain. Patient unable to tell me the quality or the quantity of the abdominal pain Patient denies any nausea vomiting diarrhea. Patient denies dysuria or frequency. 06/24: Protects airway. No change in neuro status. 06/25: Continued deterioration after brain bleed. Objective Vital Signs Date Time Temp Pulse Resp B/P Pulse Ox O2 Delivery O2 Flow Rate FiO2 06/25/17 08:00 95 06/25/17 07:00 93 Room Air 06/25/17 04:00 100.2 31 152/90 06/24/17 01:24 2 Intake and Output 06/24/17 06/24/17 06/24/17 07:59 15:59 23:59 Intake Total 387 ml 873 ml Output Total 750 ml 400 ml 475 ml Balance -750 ml -13 ml 398 ml Result Diagram: 06/24/17 0624 06/25/17 0420 Imaging Last [address] 06/23/171931 Signed Impressions: Service Date/Time: Friday, June 23, 2017 20:42 - CONCLUSION: 2.8 cm hematoma in the left thalamus with extension into the lateral ventricle and some bilateral layering intraventricular blood. There is also localized edema in the posterior left temporal region and mild midline shift towards the right. Galen Russ MD Chest X-Ray 06/23/171931 Signed Impressions: Service Date/Time: Friday, June 23, 2017 19:32 - CONCLUSION: Hyperaerated lungs. No infiltrates seen. Galen Russ MD Abdomen/Pelvis CT 06/23/171931 Signed Impressions: Service Date/Time: Friday, June 23, 2017 20:45 - CONCLUSION: No acute findings. No dilated loops of small or large bowel. Galen Russ MD Objective Remarks GENERAL: Elderly female in NAD. SKIN: Warm and dry. HEAD: Normocephalic. EYES: No scleral icterus. No injection or drainage. NECK: Supple, trachea midline.Airway widely patent. CARDIOVASCULAR: Regular rate and rhythm without murmurs, gallops, or rubs. No JVD. RESPIRATORY: Breath sounds equal bilaterally. No accessory muscle use. Clear. GASTROINTESTINAL: Abdomen soft, non-tender, nondistended. BS active. MUSCULOSKELETAL: No cyanosis, or edema. Well perfused. EXTREMITIES: Well perfused. NEURO: Right upper extremity weakness 2 out of 5, all other extremities intact. A/P Assessment and Plan ICH - No neurosurgical intervention indicated - Blood pressure control with the goal of SBP less than 140 - Mannitol every [address] Robins - Neurosurgical consult appreciated - No history of blood thinners - Neuro exams per unit protocol - Repeat CT head. Hypertension - Labetalol and hydralazine when necessary to keep SBP less than 140 Urinary tract infection - Levaquin - Culture - Antibiotic further per sensitivity Hypothyroidism - Levothyroxine per home dose DVT GI prophylaxis - Teds SCDs - No pharmacological DVT prophylaxis due to ICH - IV Pepcid Overall impression: Stable respiratory and hemodynamic status. Deteriorating neuro status. Daughter requests DNR/comfort measures only status - we agree and will comply. Diony Montoya MD Jun 25, 2017 09:24
[2017-06-25] MEDS: SODIUM CHLOR 0.9% 1000 ML INJ 1,000 ML IV SCH (10:46)
--- NOTE | 2017-06-25 12:20 | PD.CONS ---
Consult Service Palliative Care . Consult Requested By Dr. Montoya , Primary Care Physician Christy Mayes MD Reason for Consultation a. To assist with evaluation and management of symptoms including:pain, dyspnea. b. To assist medical decision maker(s) with: better understanding of current medical conditions; weighing benefits/burdens of medical treatment options; making medical treatment decisions. . HPI History of Present Illness Ms. Stewart is an 86-year-old female with past medical history of hypertension, glaucoma and hypothyroidism. She presented to [facility] ER on 06/23/17 after she was found by family with lethargy and trouble speaking. Patient was last seen in normal state of health the night before. Family member found the patient sitting on the floor in the bathroom. She was awake however with lethargy and gibberish speech. EMS was called. Patient denied headache, cough, congestion. She reported some abdominal pain, was unable to quantify or qualify. Denied any nausea, vomiting or diarrhea. Otherwise asymptomatic. CT head revealed 2.8 cm hematoma in the left thalamus with extension into the lateral ventricle and some bilateral layering intraventricular blood, localized edema in the posterior left temporal region and mild midline shift towards the right. CT abdomen/ pelvis no acute findings. Neurosurgery, Dr. Robins was consulted no surgical intervention recommend. Family elected NO CODE and is considering transition to comfort measures. Palliative care is consulted to assist with further clarification of treatment goals. . Past Family Social History Coded Allergies: Penicillin (Verified Allergy, Unknown, 06/23/17) Past Medical History Hypertension Hypothyroidism Glaucoma . Past Surgical History Hysterectomy . Reported Medications Reported Meds & Active Scripts Active Reported Latanoprost Opth Drops (Latanoprost) 0.005% Drops 1 Drop EACH EYE HS Refrigerate until opened. Alphagan P Opth Drops (Brimonidine Tartrate) 0.1% Soln 1 Drop EACH EYE Q8HR Amlodipine (Amlodipine Besylate) 5 Mg Tab 5 Mg PO DAILY Levothyroxine (Levothyroxine Sodium) 75 Mcg Tab 75 Mcg PO DAILY . Current Medications Medications (Trade) Dose Ordered Sig/Lyric Route Start Time Stop Time Status Last Admin (NS 1000 ml Inj) 1,000 ml @ 84 mls/hr [id number] IV 06/23/17 23:00 06/25/17 10:46 (NS Flush) 2 ml UNSCH PRN .XX 06/23/17 22:15 (NS Flush) 2 ml BID .XX 06/24/17 09:00 06/24/17 20:55 (Tylenol) 650 mg Q6H PRN PO 06/23/17 22:15 (Zofran Inj) 4 mg Q6H PRN IV 06/23/17 22:15 06/24/17 10:54 (Ambien) 5 mg HS PRN PO 06/23/17 22:15 Miscellaneous Information 1 [id number] XX 06/23/17 22:15 (Chlorhexidine 2% Cloth) 3 pack Taper DAILY@04 TOP 06/24/17 04:00 06/20/18 03:59 06/25/17 04:41 (Chlorhexidine 2% Cloth) 3 pack UNSCH PRN TOP 06/23/17 22:15 (Parvin-Colace) 1 tab BID PO 06/24/17 09:00 06/24/17 09:53 (Milk Of Magnesia Liq) 30 ml Q12H PRN PO 06/23/17 22:15 (Senokot) 17.2 mg Q12H PRN PO 06/23/17 22:15 (Dulcolax Supp) 10 mg DAILY PRN RECTAL 06/23/17 22:15 Lactulose 30 ml 30 ml DAILY PRN PO 06/23/17 22:15 Potassium Chloride 100 ml @ 50 mls/hr Q2H PRN IV 06/24/17 09:45 (KCl 20 Meq Premix Inj) 100 ml @ 50 mls/hr Q2H PRN IV 06/24/17 09:45 06/24/17 16:21 Potassium Bicarb/ Potassium Chloride 50 meq 50 meq UNSCH PRN PO 06/24/17 09:45 Potassium Chloride 100 ml @ 25 mls/hr UNSCH PRN IV 06/24/17 09:45 Potassium Chloride 100 ml @ 50 mls/hr Q2H PRN IV 06/24/17 09:45 (Magnesium Sulfate Inj/NS Inj) 100 ml @ 50 mls/hr UNSCH PRN IV 06/24/17 09:45 Magnesium Oxide 800 mg 800 mg UNSCH PRN PO 06/24/17 09:45 (Magnesium Sulfate Inj/NS Inj) 100 ml @ 50 mls/hr UNSCH PRN IV 06/24/17 09:45 Potassium Phosphate 2000 mg 2,000 mg Q4H PRN PO 06/24/17 09:45 (Sodium Phosphate Inj/NS 250 ml Inj) 250 ml @ 42 mls/hr UNSCH PRN IV 06/24/17 09:45 Potassium Phosphate 2000 mg 2,000 mg UNSCH PRN PO/TUBE 06/24/17 09:45 (Potassium Phosphate Inj/NS 250 ml Inj) 260 ml @ 42 mls/hr UNSCH PRN IV 06/24/17 09:45 (Morphine Inj) 4 mg Q1H PRN IV 06/24/17 18:00 06/25/17 11:08 . Family History Mother young of TB. Siblings survived TB. 2 siblings of heart disease , 1 in MVA, 1 of COPD and the other had many medical problems. . Substance Use No alcohol, tobacco ir drug use. . Psychosocial History . Has 1 son and 1 daughter. 3 grandsons she is very close to. She was living home alone, caring for herself and still drove during the day to local grocery store. . Spiritual/Cultural Factors Sikhism anna. . Physical Exam Vital Signs Date Time Temp Pulse Resp B/P Pulse Ox O2 Delivery O2 Flow Rate FiO2 06/25/17 10:00 102 06/25/17 08:00 112 06/25/17 08:00 98.9 106 26 165/81 93 06/25/17 07:00 93 Room Air 06/25/17 06:00 96 06/25/17 04:00 94 06/25/17 04:00 100.2 94 31 152/90 94 06/25/17 02:00 100 06/25/17 00:00 93 06/25/17 00:00 98.6 93 30 150/68 95 06/24/17 23:37 24 06/24/17 22:00 100 06/24/17 20:00 100.4 102 32 162/77 95 06/24/17 20:00 102 06/24/17 19:00 97 Room Air 06/24/17 18:00 98 06/24/17 16:00 83 06/24/17 16:00 98.2 83 13 173/70 96 06/24/17 14:00 87 06/24/17 06/25/17 19:00 07:00 Intake Total 387 ml 1471 ml Output Total 400 ml 775 ml Balance -13 ml 696 ml Intake IV Total 387 ml 1471 ml Output Urine Total 400 ml 775 ml # Bowel Movements 0 0 Exam CONSTITUTIONAL/GENERAL: This is an elderly, petite patient, in no apparent distress. TUBES/LINES/DRAINS: PIV, foly. SKIN: No jaundice, rashes, or lesions. Ecchymoses on upper extremities. No wounds seen anteriorly. Skin temperature appropriate. Not diaphoretic. HEAD: Atraumatic. Normocephalic. EYES: eyes closed. ENT: Unable to assess hearing. Nose without bleeding or purulent drainage. Mouth closed. NECK: Trachea midline. CARDIOVASCULAR: tachycardic. No JVD. Peripheral pulses symmetric. RESPIRATORY/CHEST: Symmetric, unlabored respirations. Clear to auscultation. diminished breath sounds. GASTROINTESTINAL: Abdomen soft, non-tender, nondistended.Bowel sounds present. GENITOURINARY: Without palpable bladder distension. Nix catheter in place. MUSCULOSKELETAL: Extremities without clubbing, cyanosis, or edema. Feet cold to touch. LYMPHATICS: No palpable cervical or supraclavicular adenopathy. NEUROLOGICAL: stirs slightly to voice/ exam. PSYCHIATRIC: appears relaxed. . Diagnostic Tests Laboratory Laboratory Tests Test 06/23/17 06/23/17 06/23/17 06/23/17 19:10 19:40 19:50 21:00 White Blood Count 14.3 TH/MM3 (4.0-11.0) Red Blood Count 4.00 MIL/MM3 (4.00-5.30) Hemoglobin 13.5 GM/DL (11.6-15.3) Hematocrit 40.0 % (35.0-46.0) Mean Corpuscular Volume 100.0 FL (80.0-100.0) Mean Corpuscular Hemoglobin 33.7 PG (27.0-34.0) Mean Corpuscular Hemoglobin 33.7 % Concent (32.0-36.0) Red Cell Distribution Width 13.4 % (11.6-17.2) Platelet Count 174 TH/MM3 (150-450) Mean Platelet Volume 9.1 FL (7.0-11.0) Neutrophils (%) (Auto) 91.0 % (16.0-70.0) Lymphocytes (%) (Auto) 3.9 % (9.0-44.0) Monocytes (%) (Auto) 4.9 % (0.0-8.0) Eosinophils (%) (Auto) 0.0 % (0.0-4.0) Basophils (%) (Auto) 0.2 % (0.0-2.0) Neutrophils # (Auto) 13.0 TH/MM3 (1.8-7.7) Lymphocytes # (Auto) 0.6 TH/MM3 (1.0-4.8) Monocytes # (Auto) 0.7 TH/MM3 (0-0.9) Eosinophils # (Auto) 0.0 TH/MM3 (0-0.4) Basophils # (Auto) 0.0 TH/MM3 (0-0.2) CBC Comment DIFF FINAL Differential Comment B-Type Natriuretic Peptide 235 PG/ML (0-100) Sodium Level 140 MEQ/L (136-145) Potassium Level 4.4 MEQ/L (3.5-5.1) Chloride Level 105 MEQ/L (98-107) Carbon Dioxide Level 20.8 MEQ/L (21.0-32.0) Anion Gap 14 MEQ/L (5-15) Blood Urea Nitrogen 16 MG/DL (7-18) Creatinine 1.00 MG/DL (0.50-1.00) Estimat Glomerular Filtration 52 ML/MIN (>89) Rate Random Glucose 128 MG/DL (74-106) Lactic Acid Level 4.9 mmol/L (0.4-2.0) Calcium Level 9.1 MG/DL (8.5-10.1) Total Bilirubin 0.7 MG/DL (0.2-1.0) Aspartate Amino Transf 40 U/L (15-37) (AST/SGOT) Alanine Aminotransferase 26 U/L (10-53) (ALT/SGPT) Alkaline Phosphatase 80 U/L (45-117) Total Creatine Kinase 715 U/L (26-192) Creatine Kinase MB 5.6 NG/ML (0.5-3.6) Creatine Kinase MB % 0.8 % (0.0-4.0) Troponin I 0.06 NG/ML (0.02-0.05) Total Protein 7.4 GM/DL (6.4-8.2) Albumin 3.8 GM/DL (3.4-5.0) Lipase 155 U/L (73-393) Thyroid Stimulating Hormone 0.421 uIU/ML 3rd Gen (0.358-3.740) Urine Color YELLOW (YELLW/STRAW) Urine Turbidity CLEAR (CLEAR) Urine pH 6.5 (5.0-8.5) Urine Specific Erwin 1.015 (1.002-1.035) Urine Protein 30 mg/dL (NEG-TRACE) Urine Glucose (UA) TRACE mg/dL (NEG) Urine Ketones 40 mg/dL (NEG) Urine Occult Blood SMALL (NEG) Urine Nitrite NEG (NEG) Urine Bilirubin NEG (NEG) Urine Urobilinogen LESS THAN 2.0 MG/DL (LESS THAN 2.0) Urine Leukocyte Esterase NEG (NEG) Urine RBC 3 /hpf (0-3) Urine WBC LESS THAN 1 /hpf (0-5) Urine Hyaline Casts 3 /lpf (RARE) Urine Mucus FEW /lpf (OCC) Microscopic Urinalysis Comment CULT NOT INDICATED Prothrombin Time 11.0 SEC (9.8-11.6) Prothromb Time International 1.0 RATIO Ratio Activated Partial 23.6 SEC Thromboplast Time (24.3-30.1) Test 06/23/17 06/24/17 06/24/17 06/25/17 22:23 06:24 09:30 04:20 Lactic Acid Level 2.7 mmol/L (0.4-2.0) White Blood Count 10.1 TH/MM3 (4.0-11.0) Red Blood Count 3.60 MIL/MM3 (4.00-5.30) Hemoglobin 12.2 GM/DL (11.6-15.3) Hematocrit 36.1 % (35.0-46.0) Mean Corpuscular Volume 100.2 FL (80.0-100.0) Mean Corpuscular Hemoglobin 33.9 PG (27.0-34.0) Mean Corpuscular Hemoglobin 33.9 % Concent (32.0-36.0) Red Cell Distribution Width 13.6 % (11.6-17.2) Platelet Count 160 TH/MM3 (150-450) Mean Platelet Volume 9.0 FL (7.0-11.0) Neutrophils (%) (Auto) 80.9 % (16.0-70.0) Lymphocytes (%) (Auto) 10.1 % (9.0-44.0) Monocytes (%) (Auto) 8.8 % (0.0-8.0) Eosinophils (%) (Auto) 0.0 % (0.0-4.0) Basophils (%) (Auto) 0.2 % (0.0-2.0) Neutrophils # (Auto) 8.2 TH/MM3 (1.8-7.7) Lymphocytes # (Auto) 1.0 TH/MM3 (1.0-4.8) Monocytes # (Auto) 0.9 TH/MM3 (0-0.9) Eosinophils # (Auto) 0.0 TH/MM3 (0-0.4) Basophils # (Auto) 0.0 TH/MM3 (0-0.2) CBC Comment DIFF FINAL Differential Comment Sodium Level 142 MEQ/L 141 MEQ/L (136-145) (136-145) Potassium Level 3.2 MEQ/L 3.8 MEQ/L (3.5-5.1) (3.5-5.1) Chloride Level 106 MEQ/L 109 MEQ/L (98-107) (98-107) Carbon Dioxide Level 27.7 MEQ/L 24.5 MEQ/L (21.0-32.0) (21.0-32.0) Anion Gap 8 MEQ/L (5-15) 8 MEQ/L (5-15) Blood Urea Nitrogen 9 MG/DL (7-18) 12 MG/DL (7-18) Creatinine 0.82 MG/DL 0.63 MG/DL (0.50-1.00) (0.50-1.00) Estimat Glomerular Filtration 66 ML/MIN (>89) 89 ML/MIN (>89) Rate Random Glucose 107 MG/DL 109 MG/DL (74-106) (74-106) Calcium Level 8.4 MG/DL 8.4 MG/DL (8.5-10.1) (8.5-10.1) Phosphorus Level 3.0 MG/DL (2.5-4.9) Magnesium Level 1.9 MG/DL (1.5-2.5) Total Bilirubin 0.7 MG/DL (0.2-1.0) Aspartate Amino Transf 44 U/L (15-37) (AST/SGOT) Alanine Aminotransferase 23 U/L (10-53) (ALT/SGPT) Alkaline Phosphatase 70 U/L (45-117) Total Protein 6.7 GM/DL (6.4-8.2) Albumin 3.5 GM/DL (3.4-5.0) Nasal Screen MRSA (PCR) MRSA NOT DETECTED (NOT DETECT) Result Diagram: 06/24/17 0624 06/25/17 0420 Microbiology Microbiology Date/Time Procedure Status Source Growth 06/23/17 19:33 Aerobic Blood Culture - Preliminary Resulted Blood Peripheral NO GROWTH IN 2 DAYS 06/23/17 19:33 Anaerobic Blood Culture - Preliminary Resulted Blood Peripheral NO GROWTH IN 2 DAYS 06/23/17 19:40 Aerobic Blood Culture - Preliminary Resulted Blood Peripheral NO GROWTH IN 2 DAYS 06/23/17 19:40 Anaerobic Blood Culture - Preliminary Resulted Blood Peripheral NO GROWTH IN 2 DAYS 06/23/17 19:50 Urine Culture - Preliminary Resulted Urine Catheterized Urine NO GROWTH IN 24 HOURS. Imaging Last Impressions Head CT 06/24/17 0000 Signed Impressions: Service Date/Time: Saturday, June 24, 2017 11:28 - CONCLUSION: Stable head CT with acute blood products in the left basal ganglia/thalamus with extension into the ventricular system. There is stable slight left to right midline shift. Ethan Espinoza MD Chest X-Ray 06/23/[id number] Signed Impressions: Service Date/Time: Friday, June 23, 2017 19:32 - CONCLUSION: Hyperaerated lungs. No infiltrates seen. Galen Russ MD Abdomen/Pelvis CT [id number]/23/[id number] Signed Impressions: Service Date/Time: Friday, June 23, 2017 20:45 - CONCLUSION: No acute findings. No dilated loops of small or large bowel. Galen Russ MD Patient/Family Conference Present at Family Conference: Met with daughter at bedside. . Family Conference Time (mins): 40 Family Conference Location: Bedside Issues Discussed: * Palliative care role, purpose, approach * Additional medical, psychosocial, and spiritual history * Patients general health, functional status, and cognitive changes in the months leading up to the current hospitalization * Patient/family understanding of the current medical problems * Patient/family understanding of prognosis * Patients goals of care as best understood from advance directives and/or conversations and/or values * Current medical treatment options and benefits/burdens of those options * Likely scenarios comparing ongoing aggressive care with a transition to comfort measures only * Questions answered to the best of my ability * Palliative care contact information provided Assessment and Plan Disease Oriented Problem List: (1) Intracranial hemorrhage Symptom Scale: (1) Pain (2) Dyspnea Pertinent Non-Medical Issues Psychosocial: . Has 1 son and 1 daughter. Spiritual: Sikhism anna. Legal: Patient is incapacitated to make her own health care decisions. Daughter is reported health care surrogate. Ethical issues impacting care: No known concerns at this time. . Important Contacts * Manjula Patterson, daughter: [phone] Prognosis PPS 10, patient is dying. . Code Status: No Code Plan * Patient is incapacitated to make her own health care decisions. Daughter is reported health care surrogate. * NO CODE * Desires transition to comfort measures with hospice support. Requests [facility] placement in [place] for management of pain, dyspnea and high risk seizures with ICH. Spoke with Quinn at [facility], bed being held. * Hospice consulted, spoke with admission nurse Jennifer. * Spoke with nurse, Amparo. * No new medication recommendations at this time, further orders per hospice attending. * Palliative care number provided. * Palliative care will be available as needed. . Thank you for the opportunity to participate in the care of Ms. Stewart. Marilyn Silva Jun 25, 2017 12:20
--- NOTE | 2017-06-25 17:15 | HHI.DS ---
Discharge Summary Admission Date Jun 23, 2017 at 21:58 Admitting Diagnosis intracranial hemorrhage. Sepsis. Elevated troponin. (1) Intracranial hemorrhage ICD Code: I62.9 Diagnosis: Principal Brief History 86-year-old female with hypertension and hypothyroidism was found by family with lethargy and trouble speaking. Patient was last seen in normal the night before. Family member found the patient sitting on the floor in the bathroom today. She was awake however with lethargy and gibberish speech. EMS was called. Patient denies any headache. Patient denies any coughing congestion. She also complains of some abdominal pain. Patient unable to tell me the quality or the quantity of the abdominal pain Patient denies any nausea vomiting diarrhea. Patient denies dysuria or frequency. CBC/BMP: 06/24/17 0624 06/25/17 0420 Significant Findings Laboratory Tests Test 06/23/17 06/23/17 06/23/17 06/23/17 19:10 19:40 19:50 21:00 White Blood Count 14.3 TH/MM3 (4.0-11.0) Neutrophils (%) (Auto) 91.0 % (16.0-70.0) Lymphocytes (%) (Auto) 3.9 % (9.0-44.0) Neutrophils # (Auto) 13.0 TH/MM3 (1.8-7.7) Lymphocytes # (Auto) 0.6 TH/MM3 (1.0-4.8) B-Type Natriuretic Peptide 235 PG/ML (0-100) Carbon Dioxide Level 20.8 MEQ/L (21.0-32.0) Estimat Glomerular Filtration 52 ML/MIN (>89) Rate Random Glucose 128 MG/DL (74-106) Lactic Acid Level 4.9 mmol/L (0.4-2.0) Aspartate Amino Transf 40 U/L (15-37) (AST/SGOT) Total Creatine Kinase 715 U/L (26-192) Creatine Kinase MB 5.6 NG/ML (0.5-3.6) Troponin I 0.06 NG/ML (0.02-0.05) Urine Protein 30 mg/dL (NEG-TRACE) Urine Ketones 40 mg/dL (NEG) Urine Occult Blood SMALL (NEG) Urine Mucus FEW /lpf (OCC) Activated Partial 23.6 SEC Thromboplast Time (24.3-30.1) Test 7/31/17 8/1/17 8/2/17 22:23 06:24 04:20 Lactic Acid Level 2.7 mmol/L (0.4-2.0) Red Blood Count 3.60 MIL/MM3 (4.00-5.30) Mean Corpuscular Volume 100.2 FL (80.0-100.0) Neutrophils (%) (Auto) 80.9 % (16.0-70.0) Monocytes (%) (Auto) 8.8 % (0.0-8.0) Neutrophils # (Auto) 8.2 TH/MM3 (1.8-7.7) Potassium Level 3.2 MEQ/L (3.5-5.1) Estimat Glomerular Filtration 66 ML/MIN (>89) Rate Random Glucose 107 MG/DL 109 MG/DL (74-106) (74-106) Calcium Level 8.4 MG/DL 8.4 MG/DL (8.5-10.1) (8.5-10.1) Aspartate Amino Transf 44 U/L (15-37) (AST/SGOT) Chloride Level 109 MEQ/L (98-107) Imaging CT Head X 2 - left basal ganglia bleed. PE at Discharge Breathing comfortably. Well perfused. Largely unresponsive. Hospital Course 86-year-old female with hypertension and hypothyroidism was found by family with lethargy and trouble speaking. Patient was last seen in normal the night before. Family member found the patient sitting on the floor in the bathroom today. She was awake however with lethargy and gibberish speech. EMS was called. Patient denies any headache. Patient denies any coughing congestion. She also complains of some abdominal pain. Patient unable to tell me the quality or the quantity of the abdominal pain Patient denies any nausea vomiting diarrhea. Patient denies dysuria or frequency. 06/24: Protects airway. No change in neuro status. 06/25: Continued deterioration after brain bleed. Family requests transfer to Hospice Care center. Pt Condition on Discharge: Deteriorating Discharge Disposition: Hospice/Med Facility Discharge Instructions DIET: Follow Instructions for: Clear Liquid Diet Activities you can perform: Regular-No Restrictions Diony Montoya MD Jun 25, 2017 17:15
== END 2017-06-25 18:08 | disposition hospice, inpatient (51) | DRG 65 ==
LOC: NEPE 19:14 → NEDA 21:58 → NEDH 06-24 02:39 → N03B 06-24 07:03
PROVIDERS: ADMIT Internal Medicine Critical Care Medicine; ATTEND Internal Medicine Critical Care Medicine
DX: I61.9 Nontraumatic intracerebral hemorrhage, unspecified (principal); N39.0 Urinary tract infection, site not specified; I10 Essential (primary) hypertension; H40.9 Unspecified glaucoma; E03.9 Hypothyroidism, unspecified; Z51.5 Encounter for palliative care; Z66 Do not resuscitate
CPT/HCPCS: 51702; 70450; 71010; 74177; 80048; 80053; 81001; 82550; 82552; 82948; 83605; 83690; 83735; 83880; 84100; 84443; 84484; 85025; 85610; 85730; 87040; 87086; 87641; 93005; 96361; 96365; 96368; 96375; C9113; J0360; J1956; J2150; J2270; J2405; J3370; J3480; J7030; J7050; Q9967